=== PATIENT | female | born 2000 | race Caucasian/White ===

== ENCOUNTER 2019-07-31 13:28 | Emergency (ER) | payer BC ==
[~2019-07-31] VITALS: Ht 162.6 cm; Wt 77.3 kg
[2019-07-31 13:31] VITALS: TEMP 99.1
[2019-07-31] MEDS ORDERED: TYLENOL 500MG500 MG PO (13:56)
[2019-07-31 14:31] LABS: BASO % 0.2 % (0.0-2.0); EOS % 0.1 % (0-4.0); GRAN # 10.3 (1.4-6.5); GRAN % 85.3 % (42.2-75.2); HEMOGLOBIN 11.7 g/dl (12.0-15.0); LYMPH # 0.7 (1.2-3.4); LYMPH % 5.7 % (20.0-51.0); MEAN CELL VOLUME 82 fl (80.0-95.0); MEAN CORPUSCULAR HEMOGLOBIN 27 pg (26.0-32.0); MEAN CORPUSCULAR HGB CONC 32 g/dl (33.0-37.0); MEAN PLATELET VOLUME 9.8 fl (7.4-10.4); MONO % 8.4 % (1.7-9.3); PLATELET COUNT 233 K/mm3 (130-400); RED BLOOD COUNT 4.41 M/mm3 (4.10-5.30); REDCELL DISTRIBUTION WIDTH-CV 12.9 % (11.5-14.5)
[2019-07-31 14:41] LABS: ALBUMIN 4.3 gm/dL (3.5-5.0); BILIRUBIN,TOTAL 0.5 mg/dL (0.0-1.0); CALCIUM 9.1 mg/dL (8.4-10.2); CREATININE, serum 0.75 (0.52-1.25); POTASSIUM 3.4 mmol/L (3.4-5.0); TOTAL PROTEIN 7.5 gm/dL (6.4-8.2)
[2019-07-31 14:42] LABS: HEMATOCRIT 36.3 % (35.0-45.0)
[2019-07-31 14:52] LABS: C-REACTIVE PROTEIN 17.4 mg/dL (0.0-0.9)
[2019-07-31 15:07] LABS: COLLECTION METHOD CLEAN CATCH
[2019-07-31 15:14] LABS: PH 6 (5-8); SQUAMOUS EPITHELIAL 0-2 /hpf; URINE APPEARANCE Clear; URINE BACTERIA None Seen /hpf; URINE BILIRUBIN Negative (NEGATIVE); URINE BLOOD 1+ (NEGATIVE); URINE COLOR Straw; URINE GLUCOSE Negative (NEGATIVE); URINE KETONE Negative (NEGATIVE); URINE LEUKOCYTE ESTERASE Negative (NEGATIVE); URINE NITRATE Negative (NEGATIVE); URINE PROTEIN(semi-quant) Negative (NEGATIVE); URINE RBC 0-2 /hpf; URINE UROBILINOGEN Negative (NEGATIVE)
[2019-07-31] MEDS ORDERED: CIPRO 500MG TA500 MG PO (15:17)
[2019-07-31] MEDS ORDERED: NORCO 325 MG-51 TAB PO (16:30)
[2019-07-31] MEDS ORDERED: CEFTIN500 MG PO (16:30)
[2019-07-31 17:16] VITALS: BP 125/79; PULSE 118
== END 2019-07-31 17:15 | disposition home or self-care (01) ==
LOC: COL.ER 13:28
PROVIDERS: Nurse Practitioner
DX: N12 Tubulo-interstitial nephritis, not specified as acute or chronic (principal)
CPT/HCPCS: A4216; J0696; J2405; J3010; J7030; Q9967

== ENCOUNTER 2021-09-22 14:02 | Emergency (ER) | payer BC ==
[~2021-09-22] VITALS: Ht 165.1 cm; Wt 77.3 kg
[~2021-09-22 14:02] MED LIST: CEFTIN500 MG PO; CIPRO 500MG TA500 MG PO; NORCO 325 MG-51 TAB PO; TYLENOL 500MG500 MG PO
[2021-09-22 14:17] VITALS: TEMP 98.1
[2021-09-22] MEDS ORDERED: SPRINTEC 35 MCG1 TAB PO (15:06)
[2021-09-22 15:33] VITALS: BP 126/82; PULSE 94
== END 2021-09-22 15:33 | disposition home or self-care (01) ==
LOC: COL.ER 14:02
DX: T74.21XA Adult sexual abuse, confirmed, initial encounter (principal); S30.814A Abrasion of vagina and vulva, initial encounter